=== PATIENT | male | born 1970 | race Hispanic/Latino ===

== ENCOUNTER 2022-08-02 11:34 | Emergency (ER) | payer OTHER ==
[~2022-08-02] VITALS: Ht 167.6 cm; Wt 81.6 kg
[2022-08-02] MEDS ORDERED: MORPHINE 4 MG SYG IM ONE ×3 (12:00→14:30)
[2022-08-02] MEDS ORDERED: ONDANSETRON ODT 4MG TAB SL ONE (12:00)
[2022-08-02] MEDS ORDERED: OXYC-38 PO (13:39)
[2022-08-02] MEDS ORDERED: IBUP-2077 PO (13:39)
[2022-08-02] MEDS ORDERED: CYCL10TA16 PO (13:39)
[2022-08-02 13:52] VITALS: BP 136/78
[2022-08-02] MEDS ORDERED: SOLU-MEDROL 125MG VIAL IM ONE (14:30)
[2022-08-02] MEDS ORDERED: HYDROMORPHONE 1 MG INJ IM ONE (14:30)
[2022-08-02] MEDS ORDERED: KETOROLAC 15MG/ML VIAL (15MG/ML) IM ONE (14:30)
== END 2022-08-02 13:55 | disposition home or self-care (01) ==
LOC: EDH 11:34
DX: M54.50 Low back pain, unspecified (principal)
CPT/HCPCS: 99284; 72131; 96372 ×5; J1170; J2930; J2270 ×2; J1885